=== PATIENT | female | born 1955 | race Caucasian/White ===

== ENCOUNTER → 2016-12-23 | Outpatient (CLI) | payer MEDICARE, OTHER ==
--- NOTE | 2016-12-23 16:22 | RADIOLOGY REPORT (SQ) ---
EXAM DESCRIPTION: PET CT SKULL/THIGH COMPLETED DATE/TIME: 12/23/2016 3:18 pm REASON FOR STUDY: LUNG CANCER C34.11 MALIGNANT NEOPLASM OF UPPER LOBE, RIGHT BRONCHUS OR L COMPARISON: 06/26/2016 and 03/22/2016. RADIONUCLIDE AND DOSE: 15.0 mCi F18 FDG The route of agent administration: Intravenous FASTING BLOOD SUGAR: 119 mg/dl CONTRAST TYPE AND DOSE: No CT contrast given. TECHNIQUE: Blood glucose level was verified. Above dose of FDG was injected intravenously. 2-D seg mented attenuation correction images were obtained from the base of the skull to the midthighs. Nonc ontrast CT images were obtained for attenuation correction and fusion with emission images. CT image s were performed without oral or intravenous contrast and are not sensitive for parenchymal lesions. A series of overlapping emission PET images were obtained. Images reviewed and manipulated at [facility] work station by the radiologist. Images stored on PACS. LIMITATIONS: None. FINDINGS: HEAD AND NECK: No areas of abnormal metabolic activity in the soft tissues of the head and neck. CHEST: Previously seen spiculated mass in the right upper lobe is no longer present. There are metal lic markers in the right upper lobe. There is an enlarged right paratracheal lymph node, measuring 2 .3 cm, with mean SUV 9.85. Previously measured 11 mm. New right hilar lymph node, measuring 1.5 cm, with mean SUV value 9.95. Area of activity in the right infrahilar region adjacent to the right atr ium and left atrium. Difficult to visualize on CT due to artifact from the central line. Mean SUV v alue 6.18. ABDOMEN AND PELVIS: There are now multiple areas of abnormal activity throughout the liver. These ar e difficult to visualize on noncontrast CT. Behavioral Technician mean SUV values are 5.92, 6.88, and 6.89. There is a 1.2 cm nodule in the left adrenal gland with mean SUV value 3.59. PROXIMAL LOWER EXTREMITIES: No areas of abnormal metabolic activity in the soft tissues of the lower extremities. ADDITIONAL CT FINDINGS: No additional significant findings on the noncontrast CT images. OTHER: No other significant findings. IMPRESSION: 1. PREVIOUSLY SEEN SPICULATED MASS IN THE RIGHT UPPER LOBE IS NO LONGER PRESENT. HOWEVER, THERE IS N OW ABNORMAL MEDIASTINAL AND HILAR ADENOPATHY CONSISTENT WITH METASTASIS. 2. INTERVAL DEVELOPMENT OF INNUMERABLE HYPERMETABOLIC LESIONS IN THE LIVER CONSISTENT WITH METASTASES . 3. SMALL NODULE IN THE LEFT ADRENAL GLAND CONSISTENT WITH METASTASIS. TECHNICAL DOCUMENTATION: JOB ID: [id number] [employer]- All Rights Reserved
== END ==
LOC: RAD 12-20 16:08
PROVIDERS: ATTEND Internal Medicine
DX: C34.11 Malignant neoplasm of upper lobe, right bronchus or lung (principal); C78.7 Secondary malignant neoplasm of liver and intrahepatic bile duct; C79.72 Secondary malignant neoplasm of left adrenal gland
CPT/HCPCS: 78815; A9552

== ENCOUNTER → 2017-01-04 | Outpatient (CLI) | payer MEDICARE, OTHER ==
--- NOTE | 2017-01-04 12:47 | RADIOLOGY REPORT (SQ) ---
EXAM DESCRIPTION: MRI HEAD COMBO COMPLETED DATE/TIME: 01/04/2017 12:25 pm REASON FOR STUDY: MAL TREY OF UPPER LOBE, R BRONCHUS OR LUNG C34.11 MALIGNANT NEOPLASM OF UPPER LOBE , RIGHT BRONCHUS OR L COMPARISON: 06/30/2016 TECHNIQUE: Multiplanar imaging includes noncontrasted T1, T2, FLAIR, and Diffusion with ADC map seq uences. Contrast enhanced T1 images. Images stored on PACS. CONTRAST TYPE AND DOSE: 20 mL MultiHance RENAL FUNCTION: GFR greater than 60 LIMITATIONS: None. FINDINGS: ANATOMY: No anomalies. Normal vascular flow voids. Pituitary fossa normal. CSF SPACES: Normal size and contour. No hemorrhage. CEREBRUM: A few high-signal intensity lesions scattered throughout the white matter on FLAIR imaging with distribution suggesting chronic microvascular ischemic change. Sulci and gyri normal in size and contour. No evidence of hemorrhage, mass or extraaxial fluid collection. No enhancing lesions. POSTERIOR FOSSA: There is a focal area of abnormal signal in the medial aspect of the right cerebella r hemisphere. This demonstrates ring enhancement and is consistent with metastatic disease. This is new from prior study. There is a 2nd area of abnormal signal in the midbrain with enhancement consi stent with metastatic disease as well. There is a probable 3rd 2 to 3 mm lesion in the right aspect of the katie. DIFFUSION: Negative for acute or subacute infarction. ORBITS: No masses. Globes normal. PARANASAL SINUSES: No fluid levels. Mucosa normal. OTHER: No other significant finding. IMPRESSION: There are small enhancing lesions in the left aspect of the midbrain, the right aspect o f the katie on the right cerebellar hemisphere consistent with metastatic disease. These are new from prior study. TECHNICAL DOCUMENTATION: JOB ID: [id number] [employer]- All Rights Reserved
== END ==
LOC: RAD 11:03
PROVIDERS: ATTEND Internal Medicine
DX: C34.11 Malignant neoplasm of upper lobe, right bronchus or lung (principal)
CPT/HCPCS: 70553; A9577

== ENCOUNTER → 2017-01-08 | Outpatient (CLI) | payer MEDICARE, OTHER ==
--- NOTE | 2017-01-08 14:54 | RADIOLOGY REPORT (SQ) ---
EXAM DESCRIPTION: VENOUS UNILATERAL LOWER COMPLETED DATE/TIME: 01/08/2017 2:41 pm REASON FOR STUDY: RLE PAIN, SWELLING M79.609 PAIN IN UNSPECIFIED LIMB M79.89 OTHER SPECIFIED SOFT TISSUE DISORDERS COMPARISON: None. TECHNIQUE: Dynamic and static mason scale and color images acquired of the right leg venous system. S elected spectral images acquired with additional compression and augmentation maneuvers. The contrala teral common femoral vein and saphenofemoral junction were also imaged. Images stored on PACS. LIMITATIONS: None. FINDINGS: COMMON FEMORAL: Normal phasicity, compression and augmentation. No visualized echogenic ma terial on mason scale. No defects on color images. FEMORAL: Normal compression and augmentation. No visualized echogenic material on mason scale. No defe cts on color images. POPLITEAL: Normal compression, augmentation. No visualized echogenic material on mason scale. No defec ts on color images. CALF VESSELS: Normal compression, augmentation. No visualized echogenic material on mason scale. No de fects on color images. GSV and SSV: Normal compression, augmentation. No visualized echogenic material on mason scale. No def ects on color images. ANY DEEP VENOUS INSUFFICIENCY: Not evaluated. ANY EVIDENCE OF POPLITEAL CYST: No. OTHER: No other significant finding. CONTRALATERAL COMMON FEMORAL VEIN AND SAPHENOFEMORAL JUNCTION: Normal phasicity, compression and augmentation. No visualized echogenic material on mason scale. No de fects on color images. IMPRESSION: NO EVIDENCE DVT OR SVT IN THE RIGHT LEG. TECHNICAL DOCUMENTATION: JOB ID: [id number] [employer]- All Rights Reserved
== END ==
LOC: SP 13:53
PROVIDERS: ATTEND Internal Medicine
DX: M79.609 Pain in unspecified limb (principal); M79.89 Other specified soft tissue disorders
CPT/HCPCS: 93971

== ENCOUNTER 2017-01-21 12:17 | Emergency (ER) | payer MEDICARE, OTHER ==
--- NOTE | 2017-01-21 12:37 | ER Document Report ---
ED Medical Screen (RME) - General Chief Complaint: Abdominal Pain Stated Complaint: STOMACH PAIN Time Seen by Provider: 01/21/17 12:33 Notes: Patient is here because her stomach is severely swollen this morning. She has not noted any problem like this yesterday. She has a history of lung cancer with metastases to her lymph nodes and liver and brain. She is currently receiving chemo therapy by Dr. Jones. She is scheduled to have radiation treatment as well, but that has not started. She is having some nausea but not vomiting. Having diarrhea. Says she is having some shortness of breath, but no chest pains. No fevers. Patient was started on steroids about a week ago for her breathing difficulty. TRAVEL OUTSIDE OF THE [place] IN LAST 30 DAYS: No - Related Data Allergies/Adverse Reactions: erythromycin base Allergy (Verified 01/21/17 12:27) prochlorperazine [From Compazine] Allergy (Verified 01/21/17 12:27) Past Medical History - Social History Frequency of alcohol use: None Drug Abuse: None - Past Medical History Cardiac Medical History: Reports: Hx Hypertension Denies: Hx Coronary Artery Disease, Hx Heart Attack Pulmonary Medical History: Reports: Hx Asthma, Hx COPD, Hx Pneumonia, Hx Sleep Apnea Denies: Hx Bronchitis Neurological Medical History: Denies: Hx Cerebrovascular Accident, Hx Seizures Renal/ Medical History: Denies: Hx Peritoneal Dialysis Malignancy Medical History: Reports: Hx Lung Cancer - Small Cell Lung Cancer Musculoskeltal Medical History: Reports Hx Arthritis - GENERALIZED Psychiatric Medical History: Reports: Hx Bipolar Disorder, Hx Depression - Immunizations Hx Diphtheria, Pertussis, Tetanus Vaccination: Yes Physical Exam - Vital signs Vitals: Temp Pulse Resp BP Pulse Ox 98.1 F 99 18 149/73 H 95 01/21/17 12:26 01/21/17 12:01/21/17 12:01/21/17 12:01/21/17 12:26 Course - Vital Signs Vital signs: Temp Pulse Resp BP Pulse Ox 98.1 F 99 18 149/73 H 95 01/21/17 12:26 01/21/17 12:01/21/17 12:01/21/17 12:01/21/17 12:26
[2017-01-21 13:17] LABS: ABSOLUTE LYMPHOCYTES (AUTO) 0.4 10^3/uL (0.5-4.7); ABSOLUTE MONOCYTES (AUTO) 0.1 10^3/uL (0.1-1.4); ABSOLUTE NEUT (AUTO) 6.2 10^3/uL (1.7-8.2); BASOPHILS % (AUTO) 0.3 % (0-2); EOSINOPHILS % (AUTO) 0.2 % (0-6); HEMOGLOBIN 11.2 g/dL (12.0-15.5); HGB HCT DIFFERENCE -0.4; MEAN CORPUSCULAR HEMOGLOBIN 32.6 pg (27.0-33.4); MEAN CORPUSCULAR VOLUME 99 fl (80-97); MONOCYTES % (AUTO) 1.5 % (3-13); RED BLOOD COUNT 3.45 10^6/uL (3.72-5.28); RED CELL DISTRIBUTION WIDTH 12.6 % (11.5-14.0); WHITE BLOOD COUNT 6.7 10^3/uL (4.0-10.5)
[2017-01-21 13:35] LABS: ALANINE AMINOTRANSFERASE 78 U/L (9-52); ALBUMIN 3.7 g/dL (3.5-5.0); ALKALINE PHOSPHATASE 88 U/L (38-126); ANION GAP 11 (5-19); ASPARTATE AMINO TRANSFERASE 40 U/L (14-36); BILIRUBIN,DIRECT 0.3 mg/dL (0.0-0.4); BILIRUBIN,TOTAL 0.4 mg/dL (0.2-1.3); BLOOD UREA NITROGEN 16 mg/dL (7-20); CALCIUM 8.9 mg/dL (8.4-10.2); CARBON DIOXIDE 31 mmol/L (22-30); CHLORIDE 99 mmol/L (98-107); CREATININE RESULT 0.75 mg/dL (0.52-1.25); GLUCOSE 166 mg/dL (75-110); LIPASE 366.7 U/L (23-300); POTASSIUM 3.9 mmol/L (3.6-5.0); SODIUM 140.9 mmol/L (137-145); TOTAL PROTEIN 6.5 g/dL (6.3-8.2)
[2017-01-21] MEDS ORDERED: HYDROCODONE/ACETAMINOPHEN 5-325 MG TABLET PO ONE (14:01)
--- NOTE | 2017-01-21 14:05 | ER Document Report ---
ED GI/ - General Chief Complaint: Abdominal Pain Stated Complaint: STOMACH PAIN Time Seen by Provider: 01/21/17 12:33 Mode of Arrival: Ambulatory Information source: Patient Notes: Patient is a 61-year-old female with lung cancer with liver and brain metastasis who presents to the ER today for abdominal distention and pain, burning. Patient states that she has been having diarrhea since this morning, but was supposed to get a colonoscopy yesterday so the day before that she drank an entire bottle of GoLYTELY. She does state that she emptied after drinking a bottle but then for some reason did not get the colonoscopy yesterday. She states that the diarrhea had subsided yesterday but started again this morning. She states that it is a lot of diarrhea and it is "pure water." She admits to nausea but denies any vomiting. She gets chemo once weekly. TRAVEL OUTSIDE OF THE [place] IN LAST 30 DAYS: No - Related Data Allergies/Adverse Reactions: erythromycin base Allergy (Verified 01/21/17 12:27) prochlorperazine [From Compazine] Allergy (Verified 01/21/17 12:27) Past Medical History - General Information source: Patient - Social History Smoking Status: Former Smoker Frequency of alcohol use: None Drug Abuse: None Family History: Reviewed & Not Pertinent Patient has suicidal ideation: No Patient has homicidal ideation: No - Past Medical History Cardiac Medical History: Reports: Hx Hypertension Denies: Hx Coronary Artery Disease, Hx Heart Attack Pulmonary Medical History: Reports: Hx Asthma, Hx COPD, Hx Pneumonia, Hx Sleep Apnea Denies: Hx Bronchitis Neurological Medical History: Denies: Hx Cerebrovascular Accident, Hx Seizures Renal/ Medical History: Denies: Hx Peritoneal Dialysis Malignancy Medical History: Reports: Hx Lung Cancer - Small Cell Lung Cancer Musculoskeltal Medical History: Reports Hx Arthritis - GENERALIZED Psychiatric Medical History: Reports: Hx Bipolar Disorder, Hx Depression - Immunizations Hx Diphtheria, Pertussis, Tetanus Vaccination: Yes Review of Systems - Review of Systems Constitutional: No symptoms reported. denies: Chills, Fever EENT: No symptoms reported Cardiovascular: No symptoms reported Respiratory: See HPI Gastrointestinal: See HPI Genitourinary: No symptoms reported Female Genitourinary: No symptoms reported Musculoskeletal: No symptoms reported Skin: No symptoms reported Hematologic/Lymphatic: No symptoms reported Neurological/Psychological: No symptoms reported Physical Exam - Vital signs Vitals: Temp Pulse Resp BP Pulse Ox 98.1 F 99 18 149/73 H 95 01/21/17 12:26 01/21/17 12:26 01/21/17 12:26 01/21/17 12:01/21/17 12:26 - Notes Notes: PHYSICAL EXAMINATION: GENERAL: chrnocially Ill-appearing, on oxygen, and in no acute distress. HEAD: Atraumatic, normocephalic. EYES: Pupils equal round and reactive to light, extraocular movements intact, sclera anicteric, conjunctiva are normal. NECK: Normal range of motion, supple without lymphadenopathy LUNGS: CTAB and equal. No wheezes rales or rhonchi. HEART: Regular rate and rhythm without murmurs ABDOMEN: Soft, no tenderness. No guarding, no rebound BACK: no vertebral tenderness, normal ROM GI/: no CVA tenderness EXTREMITIES: Normal range of motion, no pitting edema. No cyanosis. NEUROLOGICAL: Cranial nerves grossly intact. Normal sensory/motor exams. PSYCH: Normal mood, normal affect. SKIN: Warm, Dry, normal turgor, no rashes or lesions noted Course - Re-evaluation Re-evalutation: 01/21/17 18:35 Patient's lab work is unremarkable today, chest x-ray reveals no acute abnormality, CAT scan of the abdomen with IV and oral contrast revealed 3.2cm distal abdominal aortic aneurysm which is stable, multiple new lesions to the liver since June indicating metastasis. Dr. jones, oncologist, was consulted and agrees with GI cocktail, once C. difficile and stool culture added , and states that with normal white blood cell count and normal vital signs with no fever patient can be sent home to follow-up with him outpatient. - Vital Signs Vital signs: Temp Pulse Resp BP Pulse Ox 98.1 F 99 18 149/73 H 95 01/21/17 12:26 01/21/17 12:26 01/21/17 12:26 01/21/17 12:26 01/21/17 12:26 - Laboratory Result Diagrams: 01/21/17 13:00 01/21/17 13:00 Laboratory results interpreted by me: 01/21/17 01/21/17 01/21/17 13:00 13:00 13:00 RBC 3.45 L Hgb 11.2 L Hct 34.0 L MCV 99 H Seg Neutrophils % 92.0 H Lymphocytes % 6.0 L Monocytes % 1.5 L Absolute Lymphocytes 0.4 L Carbon Dioxide 31 H Glucose 166 H AST 40 H ALT 78 H Creatine Kinase 27 L Lipase 366.7 H Discharge - Discharge Clinical Impression: Liver metastasis, Abdominal distention Small cell lung cancer Qualifiers: Laterality: right Qualified Code(s): C34.91 - Malignant neoplasm of unspecified part of right bronchus or lung Condition: Stable Disposition: HOME, SELF-CARE Additional Instructions: Return immediately for any new or worsening symptoms. Follow up with Dr. Jones, call tomorrow to make followup appointment. Prescriptions: Dicyclomine HCl [Bentyl 20 mg Tablet] 20 mg PO QID #40 tablet Referrals: DUSTIN LOWRY NP [Primary Care Provider] - Follow up as needed SUZANNA QUESADA MD [ACTIVE STAFF] - Follow up as needed
--- NOTE | 2017-01-21 14:10 | RADIOLOGY REPORT (SQ) ---
EXAM DESCRIPTION: CHEST PA/LAT COMPLETED DATE/TIME: 01/21/2017 1:44 pm REASON FOR STUDY: Short of breath, ascites, Hx lung cancer metastase COMPARISON: 04/19/2016 EXAM PARAMETERS: NUMBER OF VIEWS: two views TECHNIQUE: Digital Frontal and Lateral radiographic views of the chest acquired. RADIATION DOSE: NA LIMITATIONS: none FINDINGS: LUNGS AND PLEURA: No opacities, masses or pneumothorax. No pleural effusion. MEDIASTINUM AND HILAR STRUCTURES: There appears to be a calcified right hilar node. HEART AND VASCULAR STRUCTURES: Heart normal size. No evidence for failure. BONES: No acute findings. HARDWARE: Injection port is present. The tip of the catheter is in the superior vena cava. OTHER: No other significant finding. IMPRESSION: NO SIGNIFICANT RADIOGRAPHIC FINDING IN THE CHEST. TECHNICAL DOCUMENTATION: JOB ID: [id number] [employer]- All Rights Reserved
[2017-01-21 14:46] LABS: CREATINE KINASE MB 0.47 ng/mL (<4.55)
[2017-01-21 14:47] LABS: TROPONIN I < 0.012 ng/mL
--- NOTE | 2017-01-21 17:51 | RADIOLOGY REPORT (SQ) ---
EXAM DESCRIPTION: CT ABD/PELVIS WITH IV ORAL COMPLETED DATE/TIME: 01/21/2017 5:10 pm REASON FOR STUDY: abd distention, abd pain, liver ca, lung ca COMPARISON: 04/19/2016 06/22/2016 TECHNIQUE: CT scan of the abdomen and pelvis performed using helical scanning technique with dynamic intravenous contrast injection. Oral contrast. Images reviewed with lung, soft tissue, and bone win dows. Reconstructed coronal and sagittal MPR images reviewed. Delayed images for evaluation of the ur inary system also acquired. All images stored on PACS. All CT scanners at this facility use dose modulation, iterative reconstruction, and/or weight based d osing when appropriate to reduce radiation dose to as low as reasonably achievable (ALARA). [facility]: Dose Right [facility]: CareDose [facility]: Dose Right [facility]: Teradose 4D [facility]: Enubila CONTRAST TYPE AND DOSE: contrast/concentration: Isovue 370.00 mg/ml; Total Contrast Delivered: 97.0 ml; Total Saline Delivered: 50.0 ml RENAL FUNCTION: Creatinine 0.8 BUN 16 RADIATION DOSE: 38.11. LIMITATIONS: None. FINDINGS: LOWER CHEST: No significant findings. No nodules or infiltrates. LIVER: There are multiple hepatic lesions that enhance peripherally and that were not present on the prior study. SPLEEN: Normal size. No focal lesions. PANCREAS: No masses. No significant calcifications. No adjacent inflammation or peripancreatic fluid collections. Pancreatic duct not dilated. GALLBLADDER: No identified stones by CT criteria. No inflammatory changes to suggest cholecystitis. ADRENAL GLANDS: No significant masses or asymmetry. RIGHT KIDNEY AND URETER: No solid masses. No significant calcifications. No hydronephrosis or hyd roureter. LEFT KIDNEY AND URETER: No solid masses. No significant calcifications. No hydronephrosis or hydr oureter. AORTA AND VESSELS: There is a somewhat saccular aneurysm of the distal abdominal aorta measures 32 mm in transverse diameter. RETROPERITONEUM: No retroperitoneal adenopathy, hemorrhage or masses. BOWEL AND PERITONEAL CAVITY: No masses or inflammatory changes. No free fluid or peritoneal masses. APPENDIX: Not identified. PELVIS: The urinary bladder is normal. The uterus is absent. ABDOMINAL WALL: No masses. No hernias. BONES: No significant or acute findings. OTHER: No other significant finding. IMPRESSION: 1. There are multiple hepatic lesions that were not present in June and are highly suggestive of metastases. 2. There is a stable aneurysm of the distal abdominal aorta. TECHNICAL DOCUMENTATION: JOB ID: [id number] Quality ID # [id number]: Final reports with documentation of one or more dose reduction techniques (e.g., Au tomated exposure control, adjustment of the mA and/or kV according to patient size, use of iterative reconstruction technique) 2010 [employer]- All Rights Reserved
[2017-01-21] MEDS ORDERED: METOCLOPRAMIDE HCL ORAL SOLN 10 MG/10 ML UDCUP PO ONE (18:20)
[2017-01-21] MEDS ORDERED: MAG HYDROX/AL HYDROX/SIMETH SUSP 30 ML UDCUP PO ONE (18:20)
[2017-01-21] MEDS ORDERED: LIDOCAINE 2% VISCOUS SOLN 20 ML UDCUP PO ONE (18:20)
[2017-01-21] MEDS ORDERED: DICYCLOMINE HCL 20 MG TABLET PO ONE (18:38)
[2017-01-21] MEDS ORDERED: HEPARIN SOD (PORCINE) 1 UNIT/ML PF 3 ML SYRINGE IV ONE (19:04)
[2017-01-21 20:12] VITALS: BP 101/67
== END 2017-01-21 20:12 | disposition home or self-care (01) ==
LOC: ER 12:17
DX: C34.91 Malignant neoplasm of unspecified part of right bronchus or lung (principal); C78.7 Secondary malignant neoplasm of liver and intrahepatic bile duct; C79.31 Secondary malignant neoplasm of brain; I71.4 Abdominal aortic aneurysm, without rupture; R14.0 Abdominal distension (gaseous); R19.7 Diarrhea, unspecified; R10.9 Unspecified abdominal pain; R11.0 Nausea; I10 Essential (primary) hypertension; J44.9 Chronic obstructive pulmonary disease, unspecified; Z79.899 Other long term (current) drug therapy; Z88.1 Allergy status to other antibiotic agents; Z88.8 Allergy status to other drugs, medicaments and biological substances; Z87.891 Personal history of nicotine dependence; Z99.81 Dependence on supplemental oxygen
CPT/HCPCS: 36591; 99284; 36415; 82553; 82550; 83690; 85025; 80053; 84484; 71020; 74177; A9270 ×2; J3490

== ENCOUNTER → 2017-02-03 | Outpatient (CLI) | payer MEDICARE, OTHER ==
--- NOTE | 2017-02-03 12:44 | RADIOLOGY REPORT (SQ) ---
EXAM DESCRIPTION: U/S ABDOMEN LIMITED W/O DOP COMPLETED DATE/TIME: 02/03/2017 8:10 am REASON FOR STUDY: OTHER ASCITES (R18.8) R18.8 OTHER ASCITES COMPARISON: CT abdomen and pelvis 01/21/2017 TECHNIQUE: Dynamic and static grayscale images acquired of the abdomen and recorded on PACS. Additio nal selected color Doppler and spectral images recorded. LIMITATIONS: None. FINDINGS: PANCREAS: Midline pancreas unremarkable LIVER: Too numerous to count liver metastatic lesions, increased in size and number compared to CT . The largest of these is about 4 cm in diameter, right lobe liver LIVER VASCULATURE: Normal directional flow of the main portal vein and hepatic veins. GALLBLADDER: No stones. Normal wall thickness. No pericholecystic fluid. ULTRASOUND-DETECTED DALE'S SIGN: Negative. INTRAHEPATIC DUCTS AND COMMON DUCT: CBD and intrahepatic ducts normal caliber. No filling defects. INFERIOR VENA CAVA: Normal flow. AORTA: No aneurysm. RIGHT KIDNEY: Normal size. Normal echogenicity. Dromedary hump versus 2.8 cm mass right mid-pole ki dney. No hydronephrosis. No calcifications. PERITONEAL AND RIGHT PLEURAL SPACE: No ascites or effusions. OTHER: No ascites. IMPRESSION: Definite progression of metastatic disease to the liver, questionable metastatic nodule versus dromedary hump right mid-pole kidney TECHNICAL DOCUMENTATION: JOB ID: [id number]- All Rights Reserved
== END ==
LOC: RAD 07:20
PROVIDERS: ATTEND Internal Medicine
DX: R18.8 Other ascites (principal)
CPT/HCPCS: 76705

== ENCOUNTER → 2017-03-18 | Outpatient (CLI) | payer MEDICARE, OTHER ==
--- NOTE | 2017-03-19 17:03 | RADIOLOGY REPORT (SQ) ---
EXAM DESCRIPTION: CT CHEST WITH; CT ABD/PELVIS WITH IV ONLY COMPLETED DATE/TIME: 03/18/2017 9:20 am REASON FOR STUDY: LUNG CA (C34.11) C34.11 MALIGNANT NEOPLASM OF UPPER LOBE, RIGHT BRONCHUS OR L COMPARISON: PET-CT 06/26/2016, 12/23/2016 CT abdomen pelvis 01/21/2017 CONTRAST TYPE AND DOSE: 95.3 mL of IV Isovue 370 RENAL FUNCTION: Creatinine 1.5 TECHNIQUE: CT scan of the chest performed using helical scanning technique with dynamic intravenous contrast injection. Images reviewed with lung, soft tissue and bone windows. Reconstructed coronal a nd sagittal MPR images reviewed. All images stored on PACS. CT scan of the abdomen and pelvis performed with intravenous and with oral contrastusing helical scan everardo technique with dynamic intravenous contrast injection. Images reviewed with lung, soft tissue a nd bone windows. Reconstructed coronal and sagittal MPR images reviewed. Delayed images for evaluat ion of the urinary system also acquired and evaluated. All images stored on PACS. All CT scanners at this facility use dose modulation, iterative reconstruction, and/or weight based d osing when appropriate to reduce radiation dose to as low as reasonably achievable (ALARA). [facility]: Dose Right [facility]: CareDose [facility]: Dose Right [facility]: Teradose 4D [facility]: [employer] RADIATION DOSE: 37.8 mGy . LIMITATIONS: None. FINDINGS: CHEST: LUNGS AND PLEURA: New right upper lobe 8 mm lung parenchymal nodule axial image 31. No focal infiltrates. No pleural effusion. No pneumothorax. Old radiotherapy markers right lung ap ex. Original tumor nodule has resolved. HILAR AND MEDIASTINAL STRUCTURES: There is mediastinal adenopathy as follows: 3 x 3 cm right paratracheal lymph node (was 2.3 cm on 12/23/2016) 3 x 2.5 cm precarinal lymph node (was 3 x 2 cm on 12/23/2016) 2.6 x 2 cm right hilar lymph node (was 2.2 x 1.8 cm on the 12/23/2016) HEART AND VASCULAR STRUCTURES: No aneurysm or dissection. No central pulmonary emboli. No pericardi al effusion. HARDWARE: None. THYROID AND OTHER SOFT TISSUES: No masses. No adenopathy. BONES: Benign hemangiomas and T9 and L1. OTHER: No other significant finding. ABDOMEN AND PELVIS: LIVER: Increase in size and number of liver masses compared to 01/21/2017 and 5 11/19/2016. Index lesi ons is in the posterior right lobe sub- diaphragmatic surface image 47, 3 x 2 cm in size (was 11 mm d iameter on 01/21/2017). SPLEEN: Normal size. No focal lesions. PANCREAS: No masses. No significant calcifications. No adjacent inflammation or peripancreatic fluid collections. Pancreatic duct not dilated. GALLBLADDER: No identified stones by CT criteria. No inflammatory changes to suggest cholecystitis. ADRENAL GLANDS: Right adrenal gland unremarkable. 2.4 x 2 cm left adrenal nodule (was 1.8 x 1.5 cm o n 01/21/2017) RIGHT KIDNEY AND URETER: No solid masses. No significant calcification. No hydronephrosis or hydroure ter. LEFT KIDNEY AND URETER: No solid masses. No significant calcification. No hydronephrosis or hydrouret er. AORTA AND VESSELS: Infrarenal abdominal aortic aneurysm 3.2 x 3 cm in size. RETROPERITONEUM: No retroperitoneal adenopathy, hemorrhage or masses. BOWEL AND PERITONEAL CAVITY: No masses or inflammatory changes. No free fluid or peritoneal masses. APPENDIX: Not identified. No right lower quadrant inflammatory change. ABDOMINAL WALL: No masses. No hernias. BONES: No significant or acute findings. PELVIS: No other significant finding. No masses or adenopathy. Bladder, prostate unremarkable. IMPRESSION: New right apical and 8 mm diameter new lung nodule Increasing mediastinal adenopathy Increase in liver metastatic lesions, increased size of left adrenal lesion TECHNICAL DOCUMENTATION: JOB ID: [id number] Quality ID # [id number]: Final reports with documentation of one or more dose reduction techniques (e.g., Au tomated exposure control, adjustment of the mA and/or kV according to patient size, use of iterative reconstruction technique) 2010 [employer]- All Rights Reserved
== END ==
LOC: RAD 08:42
PROVIDERS: ATTEND Internal Medicine
DX: C34.11 Malignant neoplasm of upper lobe, right bronchus or lung (principal)
CPT/HCPCS: 71260; 74177; 82565

== ENCOUNTER → 2017-03-19 | Outpatient (CLI) | payer MEDICARE, OTHER ==
--- NOTE | 2017-03-19 13:48 | RADIOLOGY REPORT (SQ) ---
EXAM DESCRIPTION: MRI HEAD COMBO COMPLETED DATE/TIME: 03/19/2017 11:35 am REASON FOR STUDY: LUNG CA (C34.11) C34.11 MALIGNANT NEOPLASM OF UPPER LOBE, RIGHT BRONCHUS OR L COMPARISON: MRI brain 01/04/2017, 06/30/2016 TECHNIQUE: Multiplanar imaging includes noncontrasted T1, T2, FLAIR, diffusion with ADC map and post gadolinium contrast T1 sequences. Images stored on PACS. CONTRAST TYPE AND DOSE: 15 mL Multihance. RENAL FUNCTION: GFR > 60. LIMITATIONS: None. FINDINGS: ANATOMY: No developmental anomalies. Normal vascular flow voids. Pituitary fossa normal. CSF SPACES: Normal in size and contour. No hemorrhage. CEREBRUM: Enhancing brain parenchymal 4 mm nodule in the mason-white junction right posterior frontal cortex axial image 20. No adjacent vasogenic edema. This is new compared to previous study. Enhancing nodule at the mason-white junction right occipital lobe, 8 mm in diameter on image 7 (was 4 mm diameter on 01/04/2017). Today's scan demonstrates mild vasogenic edema on FLAIR image 9. No MR evidence of acute ischemic change, acute intracranial hemorrhage, mass effect, or shift. POSTERIOR FOSSA: Enhancing nodule 8 mm diameter inferior right cerebellum (was 6 mm on 01/04/2017). Enhancing 5 mm nodule right medulla, 2 mm nodule left posterior katie. These are new compared to prio r study. 10 mm nodule anterior left katie with minimal adjacent vasogenic edema (was 7 mm on 01/04/2017). No posterior fossa acute or chronic ischemic change or hemorrhage. DIFFUSION IMAGING: Negative for acute or subacute infarction. ORBITS: No masses. Globes normal. PARANASAL SINUSES: No fluid levels. Mucosa normal. OTHER: No other significant finding. IMPRESSION: Increase in size and number of brain parenchymal nodules compared to MRI brain 01/04/2017 EVIDENCE OF ACUTE STROKE: NO. TECHNICAL DOCUMENTATION: JOB ID: [id number]- All Rights Reserved
== END ==
LOC: RAD 10:26
PROVIDERS: ATTEND Internal Medicine
DX: C34.11 Malignant neoplasm of upper lobe, right bronchus or lung (principal)
CPT/HCPCS: 70553; A9577

== ENCOUNTER 2017-03-20 10:26 | Emergency (ER) | payer MEDICARE, OTHER ==
[2017-03-20] MEDS ORDERED: IPRATROPIUM/ALBUTEROL 0.5-2.5 MG/3 ML AMPUL NEB ONE (11:20)
[2017-03-20] MEDS ORDERED: ONDANSETRON HCL INJ/PF 4 MG/2 ML SDV IV ONE (11:21)
[2017-03-20] MEDS ORDERED: HYDROMORPHONE HCL INJ/PF 2 MG/ML AMPULE IV ONE ×2 (11:21→13:05)
--- NOTE | 2017-03-20 11:24 | ER Document Report ---
ED General - General Chief Complaint: Abdominal Pain Stated Complaint: ABDOMINAL PAIN Time Seen by Provider: 03/20/17 11:01 Mode of Arrival: Wheelchair Information source: Patient Notes: Chest pain, right upper quadrant, epigastric left upper quadrant abdominal pain for the past 3 months. 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 Patient currently receives chemotherapy every week and her last dose of chemotherapy was 12 days ago. Patient states that she just had MRI of the head, CT abdomen and chest performed over the past 2 days. Patient reports stopping her pain medication 2 weeks ago because she felt that it was causing constipation was not helping her pain symptoms. Patient states that the pain worsened over the same time. Patient states pain is typical of the pain that she has been having with her cancer. Patient denies any fever, urinary symptoms, or vomiting. Patient does report some nausea. TRAVEL OUTSIDE OF THE [place] IN LAST 30 DAYS: No - HPI Onset: Other - 3 months, worse over the past 2 weeks Onset/Duration: Worse Quality of pain: Achy Pain Level: 5 Associated symptoms: Chest pain, Nonproductive cough, Nausea. denies: Diarrhea , Fever, Vomiting, Rhinnorhea Exacerbated by: Denies Relieved by: Denies Similar symptoms previously: Yes Recently seen / treated by doctor: Yes - Related Data Allergies/Adverse Reactions: erythromycin base Allergy (Verified 03/20/17 10:38) gabapentin Allergy (Verified 03/20/17 10:38) prochlorperazine [From Compazine] Allergy (Verified 03/20/17 10:38) Past Medical History - General Information source: Patient - Social History Smoking Status: Never Smoker Chew tobacco use (# tins/day): No Frequency of alcohol use: None Drug Abuse: None Occupation: none Lives with: Spouse/Significant other Family History: Reviewed & Not Pertinent - Past Medical History Cardiac Medical History: Reports: Hx Hypertension Denies: Hx Coronary Artery Disease, Hx Heart Attack Pulmonary Medical History: Reports: Hx Asthma, Hx COPD, Hx Pneumonia, Hx Sleep Apnea Denies: Hx Bronchitis Neurological Medical History: Denies: Hx Cerebrovascular Accident, Hx Seizures Renal/ Medical History: Denies: Hx Peritoneal Dialysis Malignancy Medical History: Reports: Hx Lung Cancer - Small Cell Lung Cancer stage IV with mets to liver, brain, mediastinal node Musculoskeltal Medical History: Reports Hx Arthritis - GENERALIZED Psychiatric Medical History: Reports: Hx Bipolar Disorder, Hx Depression Past Surgical History: Reports: Hx Hysterectomy, Other - gamma lazer knife surgery - Immunizations Hx Diphtheria, Pertussis, Tetanus Vaccination: Yes Review of Systems - Review of Systems Constitutional: No symptoms reported. denies: Fever, Recent illness EENT: No symptoms reported Cardiovascular: Chest pain, Lightheaded Respiratory: Cough Gastrointestinal: Abdominal pain, Nausea, Constipation, Poor appetite. denies: Diarrhea, Vomiting Genitourinary: No symptoms reported. denies: Dysuria, Flank pain Female Genitourinary: No symptoms reported Musculoskeletal: Back pain - chronic low back pain Skin: No symptoms reported Hematologic/Lymphatic: No symptoms reported Neurological/Psychological: No symptoms reported Physical Exam - Vital signs Vitals: Temp Pulse Resp BP Pulse Ox 98 F 97 18 125/71 92 03/20/17 10:29 03/20/17 10:29 03/20/17 10:29 03/20/17 10:29 03/20/17 10:29 - General General appearance: Appears well, Alert In distress: None - HEENT Head: Normocephalic, Atraumatic Eyes: Normal Nasal: Normal Mouth/Lips: Normal Mucous membranes: Normal Neck: Normal, Supple - Respiratory Respiratory status: No respiratory distress Chest status: Nontender Breath sounds: Nonproductive cough, Rhonchi, Wheezing Chest palpation: Normal - Cardiovascular Rhythm: Regular Heart sounds: S1 appreciated, S2 appreciated Murmur: No - Abdominal Inspection: Obese Distension: No distension Bowel sounds: Normal Tenderness: Tender - Right upper quadrant, epigastric, left upper quadrant tenderness - Back Back: Tender - Bilateral lower lumbar paraspinal tenderness - Extremities General upper extremity: Normal inspection, Normal ROM General lower extremity: Normal inspection, Normal ROM - Neurological Neuro grossly intact: Yes Cognition: Normal Kateryna Coma Scale Eye Opening: Spontaneous [place] Coma Scale Verbal: Oriented [place] Coma Scale Motor: Obeys Commands [place] Coma Scale Total: 15 - Psychological Associated symptoms: Depressed, Tearful - Skin Skin Temperature: Warm Skin Moisture: Dry Skin Color: Normal Course - Re-evaluation Re-evalutation: 03/20/17 13:05 Patient reports that nausea has resolved. Patient denies any improvement of pain symptoms, additional pain medication ordered. 03/20/17 13:[address] Quesada regarding patient presentation to the ER. Discussed patient's exam findings diagnostic test results and results of her recent MRI and CT studies performed over the past 2 days. Recommends giving patient an increased dose of fentanyl of 150 mcg every 3 days, also recommends changing her Dilaudid to oxycodone 20 mg p.o. every 6 and having patient follow up in the office this week for recheck. Also advises giving patient a soapsuds enema while she is here in the emergency department. 03/20/17 15:48 Patient complaining of continued abdominal pain. Additional pain medication ordered. RN planning to perform the enema shortly. 03/20/17 16:34 pt reports feeling better after enema 03/20/17 Discussed medication regimen with patient and her spouse. Patient's spouse states that she had previously taken oxycodone in the past without problems. Patient and her advised that there are no 150 mcg patches of fentanyl and that they will need to place 1 of her 100 mcg patches in addition to 1 of the new 50 mcg patches for a total dose of 150 mcg every 3 days. Patient also advised that she will need to discontinue the Dilaudid and instead take the oxycodone. - Vital Signs Vital signs: Temp Pulse Resp BP Pulse Ox 98 F 97 12 115/73 93 03/20/17 10:29 03/20/17 10:29 03/20/17 17:03 03/20/17 17:03 03/20/17 17:03 - Laboratory Result Diagrams: 03/20/17 12:00 03/20/17 12:00 Laboratory results interpreted by me: 03/20/17 03/20/17 12:00 12:00 RBC 3.22 L Hgb 10.7 L Hct 31.5 L MCV 98 H RDW 17.2 H Plt Count 125 L Seg Neutrophils % 90.4 H Lymphocytes % 7.4 L Monocytes % 2.0 L Absolute Lymphocytes 0.4 L Potassium 3.4 L Chloride 97 L Carbon Dioxide 35 H BUN 21 H Glucose 123 H Direct Bilirubin 0.5 H AST 87 H ALT 105 H Alkaline Phosphatase 328 H Creatine Kinase 22 L Lipase 784.7 H Labs- Entire Visit 03/20/17 03/20/17 03/20/17 10:58 12:00 12:00 WBC 5.7 RBC 3.22 L Hgb 10.7 L Hct 31.5 L MCV 98 H MCH 33.3 MCHC 34.0 RDW 17.2 H Plt Count 125 L Seg Neutrophils % 90.4 H Lymphocytes % 7.4 L Monocytes % 2.0 L Eosinophils % 0.0 Basophils % 0.2 Absolute Neutrophils 5.2 Absolute Lymphocytes 0.4 L Absolute Monocytes 0.1 Absolute Eosinophils 0.0 Absolute Basophils 0.0 Sodium 137.5 Potassium 3.4 L Chloride 97 L Carbon Dioxide 35 H Anion Gap 6 BUN 21 H Creatinine 0.87 Est GFR ( Amer) > 60 Est GFR (Non-Af Amer) > 60 Glucose 123 H Calcium 9.0 Magnesium Total Bilirubin 0.8 Direct Bilirubin 0.5 H Indirect Bilirubin Not Reportable Neonat Total Bilirubin Not Reportable AST 87 H ALT 105 H Alkaline Phosphatase 328 H Creatine Kinase 22 L CK-MB (CK-2) Troponin I Total Protein 6.6 Albumin 3.6 Lipase 784.7 H Urine Color YELLOW Urine Appearance CLEAR Urine pH 7.0 Ur Specific [place] 1.012 Urine Protein NEGATIVE Urine Glucose (UA) NEGATIVE Urine Ketones NEGATIVE Urine Blood NEGATIVE Urine Nitrite NEGATIVE Urine Bilirubin NEGATIVE Urine Urobilinogen NEGATIVE Ur Leukocyte Esterase NEGATIVE Urine WBC (Auto) 1 Urine RBC (Auto) 0 U Hyaline Cast (Auto) 1 Urine Bacteria (Auto) TRACE Squamous Epi Cells Auto 4 Urine Mucus (Auto) RARE Urine Ascorbic Acid NEGATIVE 03/20/17 03/20/17 12:00 12:00 WBC RBC Hgb Hct MCV MCH MCHC RDW Plt Count Seg Neutrophils % Lymphocytes % Monocytes % Eosinophils % Basophils % Absolute Neutrophils Absolute Lymphocytes Absolute Monocytes Absolute Eosinophils Absolute Basophils Sodium Potassium Chloride Carbon Dioxide Anion Gap BUN Creatinine Est GFR ( Amer) Est GFR (Non-Af Amer) Glucose Calcium Magnesium 2.0 Total Bilirubin Direct Bilirubin Indirect Bilirubin Neonat Total Bilirubin AST ALT Alkaline Phosphatase Creatine Kinase CK-MB (CK-2) 0.25 Troponin I < 0.012 Total Protein Albumin Lipase Urine Color Urine Appearance Urine pH Ur Specific [place] Urine Protein Urine Glucose (UA) Urine Ketones Urine Blood Urine Nitrite Urine Bilirubin Urine Urobilinogen Ur Leukocyte Esterase Urine WBC (Auto) Urine RBC (Auto) U Hyaline Cast (Auto) Urine Bacteria (Auto) Squamous Epi Cells Auto Urine Mucus (Auto) Urine Ascorbic Acid - Diagnostic Test Radiology reviewed: Reports reviewed - from outpatient ct and MRI performed over past two days Discharge - Discharge Clinical Impression: Hypokalemia Chronic pain Qualifiers: Chronic pain type: due to neoplasm Qualified Code(s): G89.3 - Neoplasm related pain (acute) (chronic) Stage 4 lung cancer Qualifiers: Laterality: unspecified laterality Qualified Code(s): C34.90 - Malignant neoplasm of unspecified part of unspecified bronchus or lung Metastasis Qualifiers: Area of secondary neoplastic involvement: unspecified site Qualified Code(s): C79.9 - Secondary malignant neoplasm of unspecified site Condition: Stable Disposition: HOME, SELF-CARE Instructions: Abdominal Pain ([facility]), Oral Narcotic Medication ([facility]) Additional Instructions: Return as needed for any new or worsening symptoms Follow up with dr Quesada this week, call Wednesday for an appointment Stop taking the Dilaudid, instead you will take oxycodone. Your dose of fentanyl will also be increased from 100 mcg, to 150 mcg every 3 days. Prescriptions: Fentanyl [Duragesic 50 Mcg/Hr Transdermal Patch] 1 each TD Q3D PRN #5 patch.[id number] PRN Reason: Oxycodone HCl 20 mg PO Q6 PRN #20 tablet PRN Reason: Referrals: DUSTIN LOWRY NP [Primary Care Provider] - Follow up as needed SUZANNA QUESADA MD [ACTIVE STAFF] - 03/22/17
[2017-03-20 11:33] LABS: APPEARANCE,URINE CLEAR; BILIRUBIN,URINE NEGATIVE (NEGATIVE); GLUCOSE, URINE NEGATIVE (NEGATIVE); KETONES,URINE NEGATIVE (NEGATIVE); LEUKOCYTE ESTERASE,URINE NEGATIVE (NEGATIVE); NITRITE,URINE NEGATIVE (NEGATIVE); PROTEIN,URINE NEGATIVE (NEGATIVE); URINE SPECIFIC GRAVITY 1.012; UROBILINOGEN,URINE NEGATIVE mg/dL (<2.0)
--- NOTE | 2017-03-20 12:16 | RADIOLOGY REPORT (SQ) ---
EXAM DESCRIPTION: ACUTE ABDOMEN SERIES COMPLETED DATE/TIME: 03/20/2017 11:58 am REASON FOR STUDY: cp, epig, LUQ, RUQ pain COMPARISON: Chest radiograph from 01/21/2017 NUMBER OF VIEWS: Three views. TECHNIQUE: Frontal chest, supine abdomen and upright/decubitus abdomen radiographic images acquired. LIMITATIONS: None. FINDINGS: CHEST: Stable with right-sided port in place. FREE AIR: None. No abnormal gas collections. BOWEL GAS PATTERN: Nonobstructive pattern. No dilated loops or air fluid levels. CALCIFICATIONS: No suspicious calcifications. HARDWARE: None in the abdomen. SOFT TISSUES: No gross mass or suggestion of organomegaly. BONES: No acute fracture. No worrisome bone lesions. OTHER: No other significant finding. IMPRESSION: NO RADIOGRAPHIC EVIDENCE FOR ACUTE ABDOMINAL DISEASE. TECHNICAL DOCUMENTATION: JOB ID: [id number] [employer]- All Rights Reserved
[2017-03-20 12:29] LABS: ABSOLUTE LYMPHOCYTES (AUTO) 0.4 10^3/uL (0.5-4.7); ABSOLUTE MONOCYTES (AUTO) 0.1 10^3/uL (0.1-1.4); ABSOLUTE NEUT (AUTO) 5.2 10^3/uL (1.7-8.2); BASOPHILS % (AUTO) 0.2 % (0-2); HEMATOCRIT 31.5 % (36.0-47.0); HEMOGLOBIN 10.7 g/dL (12.0-15.5); HGB HCT DIFFERENCE 0.6; LYMPHOCYTES % (AUTO) 7.4 % (13-45); MEAN CORPUSCULAR HEMOGLOBIN 33.3 pg (27.0-33.4); MEAN CORPUSCULAR VOLUME 98 fl (80-97); RED BLOOD COUNT 3.22 10^6/uL (3.72-5.28); RED CELL DISTRIBUTION WIDTH 17.2 % (11.5-14.0); SEGMENTED NEUTROPHILS % (AUTO) 90.4 % (42-78); WHITE BLOOD COUNT 5.7 10^3/uL (4.0-10.5)
[2017-03-20 12:54] LABS: ALANINE AMINOTRANSFERASE 105 U/L (9-52); ALBUMIN 3.6 g/dL (3.5-5.0); ALKALINE PHOSPHATASE 328 U/L (38-126); ANION GAP 6 (5-19); ASPARTATE AMINO TRANSFERASE 87 U/L (14-36); BILIRUBIN,DIRECT 0.5 mg/dL (0.0-0.4); BILIRUBIN,TOTAL 0.8 mg/dL (0.2-1.3); BLOOD UREA NITROGEN 21 mg/dL (7-20); CARBON DIOXIDE 35 mmol/L (22-30); CHLORIDE 97 mmol/L (98-107); CREATINE KINASE 22 U/L (30-135); CREATININE RESULT 0.87 mg/dL (0.52-1.25); GLUCOSE 123 mg/dL (75-110); LIPASE 784.7 U/L (23-300); POTASSIUM 3.4 mmol/L (3.6-5.0); SODIUM 137.5 mmol/L (137-145); TOTAL PROTEIN 6.6 g/dL (6.3-8.2)
[2017-03-20] MEDS ORDERED: NORMAL SALINE 1000 ML 1,000 ML IV ONE (13:03)
[2017-03-20] MEDS ORDERED: POTASSIUM CHLORIDE 10 MEQ TABLET.SA PO ONE (13:03)
[2017-03-20 13:06] LABS: CREATINE KINASE MB 0.25 ng/mL (<4.55); TROPONIN I < 0.012 ng/mL
[2017-03-20] MEDS ORDERED: OXYCODONE HCL IR 5 MG TABLET PO ONE ×2 (13:20→15:48)
[2017-03-20] MEDS ORDERED: FENTANYL 50 MCG/HR PATCH.TD72 TD ONE (13:29)
[2017-03-20 13:32] LABS: ADD ON TESTING BLD IN LAB ACKNOWLEDGE
[2017-03-20] MEDS ORDERED: NORMAL SALINE 1000 ML 1,000 ML IV PRN (15:47)
[2017-03-20 17:25] VITALS: BP 115/73
--- NOTE | 2017-03-21 07:55 | EKG REPORT ---
SEVERITY:- BORDERLINE ECG - SINUS RHYTHM BORDERLINE INFERIOR Q WAVES : Confirmed by: Edis Garay MD 21-Mar-2017 07:54:45
== END 2017-03-20 17:24 | disposition home or self-care (01) ==
LOC: ER 10:26
DX: E87.6 Hypokalemia (principal); G89.3 Neoplasm related pain (acute) (chronic); C34.90 Malignant neoplasm of unspecified part of unspecified bronchus or lung; C78.7 Secondary malignant neoplasm of liver and intrahepatic bile duct; C79.31 Secondary malignant neoplasm of brain
CPT/HCPCS: 93005; 36591; 96376; 94640; 99284; 96374; 96375; 36415; 82553; 82550; 83690; 83735; 85025; 80053; 81001; 84484; 74022; 93010; J1170; J2405; J3490; J7030; A9270 ×3; J7620